=== PATIENT | female | born 1965 | race Caucasian/White ===

== ENCOUNTER 2023-05-31 18:52 | Emergency (ER) | payer OTHER, SELFPAY ==
[2023-05-31 18:55] VITALS: BP 178/101
--- NOTE | 2023-05-31 19:05 | ED.GENMED ---
History of Present Illness
<Suzanne López PA-C - Last Filed: 05/31/23 21:15>
General
Chief Complaint: Swelling
Source: patient
Exam Limitations: none
Time Seen by Provider: 05/31/23 19:04
Nursing documentation reviewed up to this point in time: agreed with
Travel History
Have you had any contact with someone who has COVID-19?: No
Do you have any symptoms of coronavirus? Fever > 100 degrees, chills, cough, shortness of breath, sore throat, loss of taste or smell, muscle aches, or headache?: No
History of Present Illness
History of Present Illness:
This is a 57-year-old female past medical history of breast cancer, migraines, skin cancer, presenting to the ER today with chest discomfort that started this morning, as well as right hip pain and left knee pain and mild swelling for the past
month. Patient states that the chest pain started suddenly this morning when she was relaxing in her home. She states that the chest pain is in the middle of her chest that does not radiate anywhere else. She states that the pain does not change
or improve with movement. She states that the pain does not get worse with deep breath. She has never had a feeling this before. She states that she is 2 and half years of breast cancer, recently stopped her anastrozole treatment around 6 months
ago. Her last visit with oncology was around 6 months ago. Patient denies any shortness of breath, back pain, nausea, vomiting, abdominal pain. In terms of her hip pain, hip pain started around a month ago and is worse with movement. She rates
the pain a 5 out of 10. She denies any history of arthritis, any history of trauma. She states that she is concerned about bone metastasis. She has no calf pain, no calf swelling, but does have some mild swelling below the left knee. She denies
any fevers or chills, night sweats
Past History
<Suzanne López PA-C - Last Filed: 05/31/23 21:15>
Past History
ED Past Medical History: Cancer (Breast)
ED Past Surgical History: Appendectomy, and Other (Bilateral mastectomies)
Social History
Tobacco: Non-smoker
Living: with family
Employment: Employed (physician assistant)
Family History
Family History: Other (Noncontributory)
Review of Systems
<Suzanne López PA-C - Last Filed: 05/31/23 21:15>
Review of Systems
All Other Systems: ROS reviewed and negative except as documented in HPI and ROS
Phy Exam
<MANUEL Allen Last Filed: 05/31/23 21:15>
Physical Exam
Physical Exam:
General: patient is well appearing and in no acute distress
Skin: warm and dry, no rashes or lesions
Cardiac: regular rate and rhythm, no murmurs. no tenderness to palpation of the external chest wall
Pulm: normal respiratory effort, breath sounds equal b/, no wheezes, rales, or rhonchi
Abdomen: no abdominal tenderness to palpation
Musculoskeletal: Mild tenderness to palpation of the right hip joint. Negative Gustavo's sign b/l. No calf swelling or erythema b/l. 2+ dorsalis pedis pulses b/l. Full active and passive ROM of b/l knee joints, b/l hip joints. no pain with ROM. Mild
left subpatellar soft tissue swelling with no erythema, no tenderness to palpation.
Neuro: AAOx3. CN II-XII intact.
Scores
<MANUEL Allen Last Filed: 05/31/23 21:15>
Heart Failure Risk
Heart Failure Risk Score: Not Applicable
PERC Rule Criteria
Age <50 years: No
HR <100 bpm: No
Room air oxygen sat >94%: Yes
History of DVT or PE: No
Recent trauma or surgery: No
Hemoptysis: No
Exogenous estrogen: No
Clinical signs suggestive of DVT: No
: No
Considered low risk for PE: No
PERC Score: 3
PE can be excluded by PERC: No
Course
<Suzanne López PA-C - Last Filed: 05/31/23 21:15>
Orders/Labs/Results
Orders:
Orders
05/31/23 18:59
ECG [Electrocardiogram (*1)] Urgent
Reason for Study: Chest Pain
EKG- Treatment ONCE
05/31/23 19:24
CR Chest - 2 Views Urgent
Comment:
Reason For Exam: chest pain
05/31/23 19:41
CR Hip - RT w/wo Pel 2-3 Vw* Urgent
Comment:
Reason For Exam: right hip pain
Include a pelvis x-ray?: No
05/31/23 19:53
Basic Metabolic Panel Urgent
Complete Blood Count/With Diff Urgent
Troponin I Urgent
05/31/23 20:12
CR Knee - Left 1 Or 2 Views Urgent
Comment:
Reason For Exam: left knee pain
05/31/23 20:33
D-Dimer Urgent
05/31/23 19:53
05/31/23 19:53
Vital Signs
Initial and Last Documented VS:
Initial Vital Signs
Temp Pulse Resp BP Pulse Ox
98.3 F 84 20 178/101 99
05/31/23 18:55 05/31/23 18:55 05/31/23 18:55 05/31/23 18:55 05/31/23 18:55
Last Documented Vital Signs
Temp Pulse Resp BP Pulse Ox
98.3 F 69 17 126/83 98
05/31/23 18:55 05/31/23 21:00 05/31/23 21:00 05/31/23 21:00 05/31/23 21:00
<Vasquez Dahl DO - Last Filed: 05/31/23 20:15>
Orders/Labs/Results
Orders:
Orders
05/31/23 18:59
ECG [Electrocardiogram (*1)] Urgent
Reason for Study: Chest Pain
EKG- Treatment ONCE
05/31/23 19:24
CR Chest - 2 Views Urgent
Comment:
Reason For Exam: chest pain
05/31/23 19:41
CR Hip - RT w/wo Pel 2-3 Vw* Urgent
Comment:
Reason For Exam: right hip pain
Include a pelvis x-ray?: No
05/31/23 19:53
Basic Metabolic Panel Urgent
Complete Blood Count/With Diff Urgent
Troponin I Urgent
05/31/23 20:12
CR Knee - Left 1 Or 2 Views Urgent
Comment:
Reason For Exam: left knee pain
05/31/23 20:33
D-Dimer Urgent
05/31/23 19:53
05/31/23 19:53
Vital Signs
Initial and Last Documented VS:
Initial Vital Signs
Temp Pulse Resp BP Pulse Ox
98.3 F 84 20 178/101 99
05/31/23 18:55 05/31/23 18:55 05/31/23 18:55 05/31/23 18:55 05/31/23 18:55
Last Documented Vital Signs
Temp Pulse Resp BP Pulse Ox
98.3 F 69 17 126/83 98
05/31/23 18:55 05/31/23 21:00 05/31/23 21:00 05/31/23 21:00 05/31/23 21:00
<Suzanne López PA-C - Last Filed: 05/31/23 21:15>
MDM/Problems Addressed
Differential Diagnosis Includes:
ddx include ACS, pneumothorax, PE, musculoskeletal sprain/strain, GERD, patellar tendonitis, osteoarthritis
MDM/Problems Addressed:
knee pain
hip pain
chest pain
Chronic conditions affecting care: Cancer and Other (migraine disorder)
Acute Exacerbation and/or Progression of Chronic Illness:
n/a
<Suzanne López PA-C - Last Filed: 05/31/23 21:15>
*Pulse Oximetry
Patient hypoxic: no
*EKG
Interpreted by ED Provider?: Yes
EKG Intrepretation Date: 05/31/23
Interpretation: abnormal
Comparison EKG: no changes
Heart Rate: 84
Rate: normal
Rhythm: sinus
[place]: normal axis
Interval: normal interval, normal QT interval and normal CA interval
QRS Pattern: normal QRS
Ischemia: no ischemia
*Critical Care Note
Total Time (30-74mins, 75-104mins- exclusive of procedures): Not Applicable
Data Reviewed
Review of Other/Old Records Reveals: Records (Reviewed ER physician documentation from 08/08/2021) and Discharge Summary (Reviewed discharge summary from 08/10/2021)
Source: patient and records
Prescriptions/Medications Considered But Not Given:
Considered pain control for patient's chest pain however patient is comfortable at this time
<Suzanne López PA-C - Last Filed: 05/31/23 21:15>
Patient Management
Escalation/DeEscalation of care consider admission/obs:
57 year old female with a hx of breast cancer presenting to the ER today with chest pain that started this morning. It is non-pleuritic and non-positional in nature. It is located in the midline, she has never had anything like this before. She has
no hx of HTN, HLP, diabetes. CXR is negative for acute cardiopulmonary process and EKG shows no acute ischemic changes, troponin negative. Patient does have hx of recent breast cancer raising concern for PE, so d-dimer was performed which was within
normal range. At this time, there is no clear cause of her chest discomfort, advised patient to follow-up with her primary care provider to ensure resolution of the symptoms. I do not feel that cardiology follow-up is indicated at this time.
Patient has also had hip pain and left knee pain for the past month. Patient denies any trauma, any recent falls. Patient is concerned about bony metastasis. Her x-ray of her hip and knee did not show any evidence of bony metastasis, dislocation, or
fracture. Patient will use ibuprofen for pain and rest, she will follow-up with her primary care provider. Patient aware of discharge instructions, patient stable for discharge at this time
ED Attending Note
<Suzanne López PA-C - Last Filed: 05/31/23 21:15>
-
Portions of this chart may have been created with voice recognition software.� Occasional wrong word or��sound alike� substitutions may have occurred due to the inherent limitations of voice recognition software.
<Vasquez Dahl DO - Last Filed: 05/31/23 20:15>
ED Attending Note
Patient seen and examined by attending physician: Yes
I performed the substantive portion of visit, reviewed & personally made and approve the management plan that is documented in note by myself or GLORIA.: Yes
ED Attending Note:
I agree with rony note
Patient presents with multiple complaints. The thing that pressure to come to the emergency tonight was a episode of chest discomfort which was vague. She states the discomfort sort of comes and goes. It is not sharp pain. It is not worse with
deep inspiration. She does not have any associated shortness of breath. Patient also concerned about right hip pain and left knee pain in addition to aches and pains elsewhere. Patient has history of breast cancer for which she received
treatment. Patient just completed her course of aromatase inhibitor
Vital signs show mild hypertension
Lungs are clear bilateral
Heart: Regular rate and rhythm
Abdomen: Soft nontender
Right leg shows intact range of motion at the hip with mild discomfort
Left leg patient indicates pain in the left knee but there is no real point tenderness.
Discharge Plan
Departure
Patient Disposition: Home (Routine Discharge)
Date of Disposition: 05/31/23
Time of Disposition: 21:12
Patient with high blood pressure during this ER visit?: Yes
Condition: Good
Discharge Problem:
Chest discomfort, Hip pain, Knee pain
Instructions: Chest Pain (DC), Hip Pain (DC), BLOOD PRESSURE
Prescriptions:
No Action
cholecalciferol (vitamin D3) [Vitamin D3] 1,000 UNIT capsule
2,000 unit PO DAILY
anastrozole 1 MG tablet
1 mg PO DAILY
Pepcid
1 tab PO PRN PRN (Reason: GERD)
Hair/Skin/Nail
1 gum PO DAILY
cefdinir 300 MG capsule
300 mg PO BID 7 Days Qty: 14 0RF
Referrals:
Kinza Bernard PA-C [Family Provider] -
Activity Restrictions/Additional Instructions:
Please follow up with your primary care provider for further follow up and to ensure the resolution of your symptoms.
Please follow up with your oncologist.
Please return to the ER should you experience shortness of breath, acute worsening of your pain, sensory or motor weakness, fainting episodes, dizziness, lightheadedness, or other symptoms that are concerning to you.
Interventions
Interventions:
*Risk Screen - Suicide Last Done: 05/31/23 18:55
*General Assessment Last Done: 05/31/23 18:55
*Neglect/Abuse Screening Last Done: 05/31/23 18:55
ED- Fall Risk Assessment Last Done: 05/31/23 19:56
*ED COVID-19 Vaccine History Last Done: 05/31/23 19:13
ED- Cardiac Assessment Last Done: 05/31/23 19:56
ED- Pulmonary Assessment Last Done: 05/31/23 19:56
ED-Skin Assessment Last Done: 05/31/23 19:56
[2023-05-31 19:08] VITALS: BP 134/79
[2023-05-31 19:52] VITALS: BP 165/97
[2023-05-31 19:58] LABS: % Basophils 0.7 % (0-2); % Eosinophils 2.8 % (0-6); % Immature Granulocytes 0.2 % (0-0.5); % Monocytes 5.8 % (1.7-9.3); % Neutrophils 53.5 % (42.2-75.2); Absolute Basophils 0.1 10^3/uL (0-0.2); Absolute Eosinophils 0.2 10^3/uL (0-0.7); Absolute Lymphocytes 3.1 10^3/uL (1.2-3.4); Absolute Monocytes 0.5 10^3/uL (0.1-0.6); Absolute Neutrophils 4.4 10^3/uL (1.4-6.5); Hematocrit 39.3 % (37.0-47.0); Hemoglobin 13.5 g/dL (12.0-16.0); Mean Corp Hgb Conc. 34.4 g/dL (33.0-37.0); Mean Corpuscular Hgb 29.2 pg (27.0-31.0); Mean Corpuscular Volume 84.9 fL (81.0-99.0); Mean Platelet Volume 9.2 fL (7.4-10.4); Nucleated Red Blood Cells % 0 %; Platelet Count 305 10^3/uL (130-400); Red Blood Cell Count 4.63 10^6/uL (4.20-5.40); Red Cell Dist. Width 12.3 % (11.5-14.5); White Blood Cell Count 8.3 10^3/uL (4.8-10.8)
[2023-05-31 20:00] VITALS: BP 155/87
[2023-05-31 20:15] LABS: Blood Urea Nitrogen 16 mg/dl (7-17); Calcium 9.9 mg/dl (8.4-10.2); Carbon Dioxide 27 mmol/L (22-30); Chloride 105 mmol/L (98-107); Glucose 93 mg/dl (70-99); Sodium 138 mmol/L (135-145); eGFR > 60.00
[2023-05-31 20:24] LABS: Troponin I < 0.012 ng/ml
[2023-05-31 21:00] VITALS: BP 126/83
[2023-05-31 21:01] LABS: D-Dimer 0.33 ug/mlFEU (0.00-0.50)
== END 2023-05-31 21:24 | disposition home or self-care (01) ==
LOC: EMR 18:52
PROVIDERS: Physician Assistant; EMERGENCY PHYSICIAN Emergency Medicine; FAMILY PHYSICIAN Physician Assistant Medical
DX: R07.89 Other chest pain (principal); M25.562 Pain in left knee; M25.551 Pain in right hip; Z85.3 Personal history of malignant neoplasm of breast; Z85.828 Personal history of other malignant neoplasm of skin; Z90.13 Acquired absence of bilateral breasts and nipples; Z90.49 Acquired absence of other specified parts of digestive tract
CPT/HCPCS: 99283; 71046; 73502; 73560; 80048; 84484; 85025; 85379; 93005